=== PATIENT | female | born 1965 | race Caucasian/White ===

== ENCOUNTER 2016-09-29 12:38 | Observation (INO) | payer OTHER ==
[2016-09-29 13:16] LABS: Hematocrit 40 % (35-47); Hemoglobin 13.1 g/dl (12.0-16.0); Mean Corpuscular HGB Conc 33 g/dl (31-36); Mean Corpuscular Hemoglobin 28 pg (27-31); Mean Corpuscular Volume 86 fL (80-97); Mean Platelet Volume 7 um3 (7.4-10.4); Red Blood Count 4.62 10^6/ul (4.0-5.4); Red Cell Distribution Width 14 % (10.5-15); White Blood Count 13.1 10^3/ul (3.5-10.8)
[2016-09-29 13:18] LABS: Add Diff/Slide Review? Slide Review Added; Comments Flag Yes
[2016-09-29 13:31] LABS: Albumin 3.8 g/dL (3.2-5.2); BUN/Creatinine Ratio 15.9 (8-20); Calcium 9.7 mg/dL (8.6-10.3); EGFR African American 94.5 (>60); EGFR Non-African American 73.5 (>60); Globulin 3.1 g/dL (2-4); Potassium 3.8 mmol/L (3.5-5.0); Total Bilirubin 0.4 mg/dL (0.2-1.0); Total Protein 6.9 g/dL (6.4-8.9)
[2016-09-29] MEDS ORDERED: Albuterol/Ipratropium NEB.SOL* Albuterol 2.5 MG/Ipratropium 0.5 MG 3 ML INH ONE (13:56)
[2016-09-29] MEDS ORDERED: Iohexol 350* (CONTRAST) 500 ML MDV IV ONE (14:10)
[2016-09-29] MEDS ORDERED: cefTRIAXone VIAL(*) 1,000 MG in NS 0.9% 50 ML* 50 ML IVPB ONE ×2 (14:34→15:00)
[2016-09-29] MEDS ORDERED: cefTRIAXone VIAL(*) 1,000 MG VIAL ONE (14:39)
--- NOTE | 2016-09-29 14:45 | RAD ---
INDICATION: Chest pain shortness of breath COMPARISON: Similar chest x-ray dated September 18, 2016 TECHNIQUE: PA and lateral views of the chest were obtained. FINDINGS: The heart and mediastinum are normal in size and contour. The lungs are grossly clear. There is no evidence of large pleural effusion. Visualized bones are normal for the patient's age. There is no radiographic evidence of free air beneath the diaphragm IMPRESSION: No radiographic evidence of acute cardiopulmonary disease.
[2016-09-29] MEDS ORDERED: cefTRIAXone 1 GM IV - ED ONCE IVPB ONE ×2 (15:00)
--- NOTE | 2016-09-29 15:02 | RAD ---
INDICATION: Shortness of breath and tachycardia COMPARISON: None TECHNIQUE: Axial source images were acquired following the administration of 75 mL Omnipaque [address] angiographic technique. Coronal and sagittal reconstructed images were constructed and reviewed. FINDINGS: There there are no filling defects in the pulmonary arteries to indicate acute pulmonary embolic disease. There are no focal infiltrates or effusions. There are no pulmonary parenchymal masses. The heart is normal in size. There is no evidence of pericardial effusion. There is no evidence of aortic aneurysm or dissection. There is no mediastinal, hilar, or axillary lymphadenopathy. In the left breast there is a 1.8 mm nodule with a hyperattenuating focus (image 97 of 234). This appears to correspond to the appearance of the patient's screening mammogram dated August 26, 2015. Mild degenerative changes of the thoracic spine includes loss of intervertebral disc height and anterior marginal osteophyte formation. Limited views of the upper abdomen show no abnormalities. IMPRESSION: 1. No CT of evidence of pulmonary embolism. 2. Left breast nodule appears to correspond to the patient's August 26, 2015 mammogram and is of doubtful clinical concern. Continued annual mammographic screening is recommended for woman of this age.
--- NOTE | 2016-09-29 17:05 | HP ---
H&P (Free Text) History and Physical: PCP: Ajay Horta MD Date/Time of Evaluation: 09/29/2016 1710 CC: chest pain, SOB HPI: Mrs Bowden is a 51YO female who reports a dry cough onset just prior to Thanksgiving for which she has been following with her PCP and received a total of 3 courses of steroids and a 7day course of doxycycline. She feels the steroids helped some, but not remarkably. She denies periods of resolution. She has had increasing fatigue, SOB, & chest tightness since the Saturday before X- mas associated with post-nasal drip. She has had some light-headedness & palpitations. She had a single episode of N/V yesterday without blood or black contents. She denies F/C, diarrhea, and sweats. ED evaluation is notable for sinus tachycardia in the 120s, WBCs of 13k w/ 83% neutrophils, & lactic acid of 2.6. ECG is sinus tachycardia rate 119, biatrial enlargement, no ischemia. CXR & CTA chest are benign. She has not received an influenza vaccine this year. PMedHx migraines anxiety HTN allergic rhinitis Allergies Topiramate [From Topamax] Allergy (Severe, Verified 09/29/16 12:49) See Comment DEPRESSSION - DIDN'T GET OUT OF BED FOR 4 DAYS Adhesive Tape Adverse Reaction (Mild, Verified 09/29/16 12:49) Rash Ambulatory Orders Carisoprodol TAB* [Soma TAB*] 350 mg PO TID PRN 07/31/12 Hydrocodone/Acetam 5/500 (NF) [Lortab 5/500 (NF)] 1 - 2 tab PO Q6HR 07/31/12 Lisinopril TAB* [Prinivil TAB*] 10 mg PO DAILY 08/01/12 FLUoxetine CAP* [PROzac CAP*] 30 mg PO DAILY 03/19/13 Qnasl 1 nasal.spr INTRANASAL DAILY 05/11/13 Nortriptyline CAP* [Pamelor CAP*] 30 mg PO QPM 03/03/14 Advil 800 mg 04/10/14 Pseudoephedrine-Guaifenesin [Mucinex D] 1 tab PO DAILY 09/29/16 PSurgHx section L4-5 discectomy SocHx: former smoker w/ ~10PYHX, ~6 alcoholic drinks weekly, no recreational drugs; ; Master's degree in Human and Enviromental Analysis, employed by [employer]; [employer]; full code status FamHx: reviewed, non-contributory ROS: as above, otherwise reviewed and all were negative Constitutional: NAD, normally developed, obese white female vitals: Vital Signs Temp 36.8 C 09/29/16 12:40 Pulse 115 09/29/16 17:30 Resp 18 09/29/16 17:30 BP 109/79 09/29/16 17:30 Pulse Ox 98 09/29/16 17:30 Intake & Output 09/28/16 09/29/16 09/29/16 23:59 11:59 23:59 Intake Total 50 Balance 50 Weight 192 lb Intake: IV Fluids 50 HEENM: atraumatic; sclera/conjunctiva: non-icteric/clear; hearing: clinically intact; oropharynx: clear, mucosa tacky Neck: soft tissue: non-tender; thyroid: normal Pulmonary: clear to auscultation bilaterally, good aeration, no accessory muscle use CV: TR/RR, normal S1S2, no carotid bruit, no jugular venous distention, 2+ B DP/ PT, no edema Abdominal: soft, non-distended, non-tender, no rebound/guarding/rigidity, normoactive bowel sounds, no hepatosplenomegaly or masses, no costovertebral angle tenderness Musculoskeletal: general: grossly intact; gait: stable Integumental: normal appearance and texture Psychiatric orientation: AA&O to PPTS affect: calm mood: cooperative eye contact: good content: reliable responses: timely insight: good Testing: Lab Results 09/29/16 09/29/16 09/29/16 Range/Units 13:06 13:06 13:06 WBC 13.1 H (3.5-10.8) 10^3/ul RBC 4.62 (4.0-5.4) 10^6/ul Hgb 13.1 (12.0-16.0) g/dl Hct 40 (35-47) % MCV 86 (80-97) fL MCH 28 (27-31) pg MCHC 33 (31-36) g/dl RDW 14 (10.5-15) % Plt Count 326 (150-450) 10^3/ul MPV 7 L (7.4-10.4) um3 Neut % (Auto) 83.6 H (38-83) % Lymph % (Auto) 10.2 L (25-47) % [place] % (Auto) 4.8 (1-9) % Eos % (Auto) 1.0 (0-6) % Baso % (Auto) 0.4 (0-2) % Absolute Neuts (auto) 10.9 H (1.5-7.7) 10^3/ul Absolute Lymphs (auto) 1.3 (1.0-4.8) 10^3/ul Absolute Monos (auto) 0.6 (0-0.8) 10^3/ul Absolute Eos (auto) 0.1 (0-0.6) 10^3/ul Absolute Basos (auto) 0.1 (0-0.2) 10^3/ul Absolute Nucleated RBC 0.01 10^3/ul Nucleated RBC % 0.1 Sodium 134 (133-145) mmol/L Potassium 3.8 (3.5-5.0) mmol/L Chloride 102 (101-111) mmol/L Carbon Dioxide 24 (22-32) mmol/L Anion Gap 8 (2-11) mmol/L BUN 13 (6-24) mg/dL Creatinine 0.82 (0.51-0.95) mg/dL Est GFR ( Amer) 94.5 (>60) Est GFR (Non-Af Amer) 73.5 (>60) BUN/Creatinine Ratio 15.9 (8-20) Glucose 135 H (70-100) mg/dL Lactic Acid 2.6 H* (0.5-2.0) mmol/L Calcium 9.7 (8.6-10.3) mg/dL Total Bilirubin 0.40 (0.2-1.0) mg/dL AST 20 (13-39) U/L ALT 37 (7-52) U/L Alkaline Phosphatase 68 (34-104) U/L Troponin I 0.00 (<0.04) ng/mL B-Natriuretic Peptide ( - 100) pg/mL Total Protein 6.9 (6.4-8.9) g/dL Albumin 3.8 (3.2-5.2) g/dL Globulin 3.1 (2-4) g/dL Albumin/Globulin Ratio 1.2 (1-3) Procalcitonin (<0.6) ng/mL 09/29/16 09/29/16 Range/Units 13:06 13:06 WBC (3.5-10.8) 10^3/ul RBC (4.0-5.4) 10^6/ul Hgb (12.0-16.0) g/dl Hct (35-47) % MCV (80-97) fL MCH (27-31) pg MCHC (31-36) g/dl RDW (10.5-15) % Plt Count (150-450) 10^3/ul MPV (7.4-10.4) um3 Neut % (Auto) (38-83) % Lymph % (Auto) (25-47) % Noble % (Auto) (1-9) % Eos % (Auto) (0-6) % Baso % (Auto) (0-2) % Absolute Neuts (auto) (1.5-7.7) 10^3/ul Absolute Lymphs (auto) (1.0-4.8) 10^3/ul Absolute Monos (auto) (0-0.8) 10^3/ul Absolute Eos (auto) (0-0.6) 10^3/ul Absolute Basos (auto) (0-0.2) 10^3/ul Absolute Nucleated RBC 10^3/ul Nucleated RBC % Sodium (133-145) mmol/L Potassium (3.5-5.0) mmol/L Chloride (101-111) mmol/L Carbon Dioxide (22-32) mmol/L Anion Gap (2-11) mmol/L BUN (6-24) mg/dL Creatinine (0.51-0.95) mg/dL Est GFR ( Amer) (>60) Est GFR (Non-Af Amer) (>60) BUN/Creatinine Ratio (8-20) Glucose (70-100) mg/dL Lactic Acid (0.5-2.0) mmol/L Calcium (8.6-10.3) mg/dL Total Bilirubin (0.2-1.0) mg/dL AST (13-39) U/L ALT (7-52) U/L Alkaline Phosphatase (34-104) U/L Troponin I (<0.04) ng/mL B-Natriuretic Peptide 12 ( - 100) pg/mL Total Protein (6.4-8.9) g/dL Albumin (3.2-5.2) g/dL Globulin (2-4) g/dL Albumin/Globulin Ratio (1-3) Procalcitonin < 0.1 (<0.6) ng/mL ECG, personally reviewed: sinus tachycardia rate 119, biatrial enlargement, no ischemia CXR, personally reviewed: IMPRESSION: No radiographic evidence of acute cardiopulmonary disease. CTA chest, personally reviewed: IMPRESSION: 1. No CT of evidence of pulmonary embolism. 2. Left breast nodule appears to correspond to the patient's August 26, 2015 mammogram and is of doubtful clinical concern. Continued annual mammographic screening is recommended for woman of this age. Impression: 51F presenting with a chronic dry cough failed outpatient treatment , mild leukocytosis, and ECG revealing unexplained biatrial enlargement DIAGNOSIS & PLAN Primary chronic cough likely 2nd ACEI : D/C lisinopril : check rapid influenza : trend leukocytosis : supportive care sinus tachycardia : suspect 2nd dehydration & anxiety : IVFs, monitor abnormal ECG w/ biatrial enlargement : check ECHO for structural abnormalities, specifically of the mitral valve Secondary migraines : continue PRN carisoprodol & hydrocodoneAPAP PRN anxiety : continue fluoxetine HTN : continue lisinopril allergic rhinitis : continue Q nasal Admission Rational: observation for chronic cough failed outpatient treatment DVTp: ANNE MARIE Code Status: full
[2016-09-29] MEDS ORDERED: Acetaminophen TAB* 325 MG PO PRN (17:49)
[2016-09-29] MEDS ORDERED: Albuterol 2.5 MG/3 ML NEB.SOL* (0.083%) INH PRN (17:49)
[2016-09-29] MEDS ORDERED: Ondansetron INJ* 2 MG/ML VIAL IV PRN (17:50)
[2016-09-29] MEDS ORDERED: Melatonin (NF) 3 MG TAB PO PRN (17:50)
[2016-09-29] MEDS ORDERED: NS 0.9% 1000 ML* 1,000 ML IV SCH (18:00)
[2016-09-29] MEDS ORDERED: Nortriptyline CAP* 10 MG PO SCH (18:00)
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
[2016-09-29] MEDS: guaiFENesin ER TAB 600 MG PO SCH (21:07)
[2016-09-29] MEDS: NS 0.9% 1000 ML* 1,000 ML IV SCH ×2 (22:28→23:47)
[2016-09-30] MEDS ORDERED: Omeprazole CAP* 20 MG PO SCH (06:00)
[2016-09-30 08:33] LABS: Hematocrit 36 % (35-47); Hemoglobin 11.7 g/dl (12.0-16.0); Mean Corpuscular HGB Conc 33 g/dl (31-36); Mean Corpuscular Hemoglobin 29 pg (27-31); Mean Corpuscular Volume 87 fL (80-97); Mean Platelet Volume 7 um3 (7.4-10.4); Red Blood Count 4.08 10^6/ul (4.0-5.4); Red Cell Distribution Width 14 % (10.5-15); White Blood Count 9.8 10^3/ul (3.5-10.8)
[2016-09-30] MEDS ORDERED: Lisinopril TAB* 10 MG PO SCH (09:00)
[2016-09-30] MEDS ORDERED: FLUoxetine CAP* 10 MG PO SCH (09:00)
[2016-09-30] MEDS ORDERED: Influenza VAC *QUAD* 2016-17* 0.5 ML SYRINGE IM ONE (09:00)
[2016-09-30] MEDS: guaiFENesin ER TAB 600 MG PO SCH (09:10)
[2016-09-30 11:41] VITALS: BP 134/85
--- NOTE | 2016-09-30 11:45 | DCNOTE ---
Subjective Date of Service: 09/30/16 Interval History: No change in cough. Objective Active Medications: Acetaminophen (Tylenol Tab*) 650 mg PO Q6H PRN PRN Reason: FEVER/PAIN Last Admin: 09/29/16 21:07 Dose: 650 mg Albuterol (Ventolin 2.5 Mg/3 Ml Neb.Fanta*) 2.5 mg INH Q2H PRN PRN Reason: SOB/WHEEZING Fluoxetine HCl (Prozac Cap*) 30 mg PO DAILY [facility] Last Admin: 09/30/16 09:11 Dose: 30 mg Guaifenesin (Mucinex*) 1,200 mg PO BID [facility] Last Admin: 09/30/16 09:10 Dose: 1,200 mg Sodium Chloride (Ns 0.9% 1000 Ml*) 1,000 mls @ 0 mls/hr IV WIDE OPEN BELEM PRN Reason: Wide Open Stop: 09/30/16 18:01 Last Admin: 09/29/16 23:47 Dose: 1,000 mls/hr Nortriptyline HCl (Pamelor Cap*) 30 mg PO QPM [facility] Last Admin: 09/29/16 21:48 Dose: 30 mg Ondansetron HCl (Zofran Inj*) 4 mg IV Q6H PRN PRN Reason: NAUSEA Vital Signs 09/29/16 09/29/16 09/29/16 17:30 18:00 18:30 Temperature Pulse Rate 115 115 110 Respiratory 18 25 21 Rate Blood Pressure 109/79 115/81 (mmHg) O2 Sat by Pulse 98 97 96 Oximetry 09/29/16 09/29/16 09/29/16 19:00 19:30 20:00 Temperature 98.8 F Pulse Rate 114 114 111 Respiratory 18 13 17 Rate Blood Pressure 120/87 125/80 126/83 (mmHg) O2 Sat by Pulse 98 97 100 Oximetry 09/29/16 09/29/16 09/30/16 20:02 20:22 04:06 Temperature 98.8 F 97.8 F Pulse Rate 111 114 Respiratory 17 17 16 Rate Blood Pressure 126/83 125/77 (mmHg) O2 Sat by Pulse 100 98 Oximetry 09/30/16 09/30/16 09/30/16 07:14 08:00 10:28 Temperature 98.0 F Pulse Rate 105 115 Respiratory 16 16 18 Rate Blood Pressure 118/75 (mmHg) O2 Sat by Pulse 99 99 Oximetry Oxygen Devices in Use Now: None Appearance: Alert, partly up in bed. In fair spirits. Looks comfortable other than fairly frequent harsh cough. Ears/Nose/Mouth/Throat: Clear Oropharnyx, Mucous Membranes Moist Neck: NL Appearance and Movements; NL JVP, No Thyroid Enlargement, Masses Respiratory: Symmetrical Chest Expansion and Respiratory Effort, Clear to Auscultation Extremities: No Edema, No Clubbing, Cyanosis, - Skin: No Rash or Ulcers, No Nodules or Sclerosis, - Neurological: Alert and Oriented x 3, NL Sensation Result Diagrams: 09/30/16 08:19 09/29/16 13:06 Additional Lab and Data: Lab Results 09/29/16 09/29/16 09/29/16 Range/Units 13:06 13:06 13:06 WBC 13.1 H (3.5-10.8) 10^3/ul RBC 4.62 (4.0-5.4) 10^6/ul Hgb 13.1 (12.0-16.0) g/dl Hct 40 (35-47) % MCV 86 (80-97) fL MCH 28 (27-31) pg MCHC 33 (31-36) g/dl RDW 14 (10.5-15) % Plt Count 326 (150-450) 10^3/ul MPV 7 L (7.4-10.4) um3 Neut % (Auto) 83.6 H (38-83) % Lymph % (Auto) 10.2 L (25-47) % [place] % (Auto) 4.8 (1-9) % Eos % (Auto) 1.0 (0-6) % Baso % (Auto) 0.4 (0-2) % Absolute Neuts (auto) 10.9 H (1.5-7.7) 10^3/ul Absolute Lymphs (auto) 1.3 (1.0-4.8) 10^3/ul Absolute Monos (auto) 0.6 (0-0.8) 10^3/ul Absolute Eos (auto) 0.1 (0-0.6) 10^3/ul Absolute Basos (auto) 0.1 (0-0.2) 10^3/ul Absolute Nucleated RBC 0.01 10^3/ul Nucleated RBC % 0.1 Sodium 134 (133-145) mmol/L Potassium 3.8 (3.5-5.0) mmol/L Chloride 102 (101-111) mmol/L Carbon Dioxide 24 (22-32) mmol/L Anion Gap 8 (2-11) mmol/L BUN 13 (6-24) mg/dL Creatinine 0.82 (0.51-0.95) mg/dL Est GFR ( Amer) 94.5 (>60) Est GFR (Non-Af Amer) 73.5 (>60) BUN/Creatinine Ratio 15.9 (8-20) Glucose 135 H (70-100) mg/dL Lactic Acid 2.6 H* (0.5-2.0) mmol/L Calcium 9.7 (8.6-10.3) mg/dL Total Bilirubin 0.40 (0.2-1.0) mg/dL AST 20 (13-39) U/L ALT 37 (7-52) U/L Alkaline Phosphatase 68 (34-104) U/L Troponin I 0.00 (<0.04) ng/mL B-Natriuretic Peptide ( - 100) pg/mL Total Protein 6.9 (6.4-8.9) g/dL Albumin 3.8 (3.2-5.2) g/dL Globulin 3.1 (2-4) g/dL Albumin/Globulin Ratio 1.2 (1-3) /31/16 Range/Units 13:06 WBC (3.5-10.8) 10^3/ul RBC (4.0-5.4) 10^6/ul Hgb (12.0-16.0) g/dl Hct (35-47) % MCV (80-97) fL MCH (27-31) pg MCHC (31-36) g/dl RDW (10.5-15) % Plt Count (150-450) 10^3/ul MPV (7.4-10.4) um3 Neut % (Auto) (38-83) % Lymph % (Auto) (25-47) % [place] % (Auto) (1-9) % Eos % (Auto) (0-6) % Baso % (Auto) (0-2) % Absolute Neuts (auto) (1.5-7.7) 10^3/ul Absolute Lymphs (auto) (1.0-4.8) 10^3/ul Absolute Monos (auto) (0-0.8) 10^3/ul Absolute Eos (auto) (0-0.6) 10^3/ul Absolute Basos (auto) (0-0.2) 10^3/ul Absolute Nucleated RBC 10^3/ul Nucleated RBC % Sodium (133-145) mmol/L Potassium (3.5-5.0) mmol/L Chloride (101-111) mmol/L Carbon Dioxide (22-32) mmol/L Anion Gap (2-11) mmol/L BUN (6-24) mg/dL Creatinine (0.51-0.95) mg/dL Est GFR ( Amer) (>60) Est GFR (Non-Af Amer) (>60) BUN/Creatinine Ratio (8-20) Glucose (70-100) mg/dL Lactic Acid (0.5-2.0) mmol/L Calcium (8.6-10.3) mg/dL Total Bilirubin (0.2-1.0) mg/dL AST (13-39) U/L ALT (7-52) U/L Alkaline Phosphatase (34-104) U/L Troponin I (<0.04) ng/mL B-Natriuretic Peptide 12 ( - 100) pg/mL Total Protein (6.4-8.9) g/dL Albumin (3.2-5.2) g/dL Globulin (2-4) g/dL Albumin/Globulin Ratio (1-3) Microbiology and Other Data: Microbiology 09/29/16 18:20 Influenza Types A,B Antigen (IDALIA) - Final Nasal Specimen received for Influenza A/B Molecular testing Assess/Plan/Problems-Billing Assessment: - Patient Problems (1) Cough Status: Acute Code(s): R05 - COUGH SNOMED Code(s): 11323831 Comment: Possibly due to ACEI. Echo shows mild concnetric LVH, LVEF 50-55% .. Last dose lisinopril 09/29/16. Fup Dr. Horta. If no improvement in the next few weeks would recommend pulmonary consultation. (2) Migraines Status: Acute Code(s): G43.909 - MIGRAINE, UNSP, NOT INTRACTABLE, WITHOUT STATUS MIGRAINOSUS SNOMED Code(s): 92452086 Comment: Continue her home meds. (3) HTN (hypertension) Status: Acute Code(s): I10 - ESSENTIAL (PRIMARY) HYPERTENSION SNOMED Code(s) : 39010994 Comment: Lisinopril d/c'd. Adrianop Dr. Horta.
[2016-09-30 12:03] LABS: TSH (Thyroid Stimulating Horm) 0.73 mcIU/mL (0.34-5.60)
--- NOTE | 2016-09-30 14:35 | ECHO ---
Patient: HATTIE DAVIDSON [facility] Rec#: [id number] : 1965 Date: 09/30/2016 Age: 51y Height: 157.5 cm / 62.0 in Weight: 87.1 kg / 192.0 lbs Sex: F BSA: 1.9 Room#: 401 Admit Date#: 09/29/2016 Type: Inpatient Referring: Srikanth Johnson MD Reading: Teresa Floyd MD Nnps: Evangelina Haynes RN RDCS CC: Reji Horta MD Transthoracic Echocardiogram Indication: Abnormal EKG BP: 134/85 HR: 104 Rhythm: Tachycardia Findings History: Migraines, HTN, anxiety, obesity, allergic rhinitis, recent persistent cough, current EKG suggesting biatrial enlargement Technical Comments: The study is technically limited due to poor apical windows. The study is technically limited due to patient body habitus. The study is technically limited due to the patient's smoking history. Left Ventricle: The left ventricular chamber size is normal. Mild concentric left ventricular hypertrophy is observed. Global left ventricular wall motion and contractility are within normal limits. Left ventricular systolic function is at the lower limits of normal. The estimated ejection fraction is 50-55%. There is an E to A reversal in the mitral valve flow pattern suggestive of diastolic dysfunction. Left Atrium: The left atrial chamber size is normal. Right Ventricle: The right ventricular chamber size and systolic function are within normal limits. Right Atrium: The right atrium is mildly dilated. Aortic Valve: The aortic valve structure is not well visualized. The aortic valve leaflets are mildly thickened. There is no evidence of aortic regurgitation. There is no evidence of aortic stenosis. Mitral Valve: The mitral valve leaflets are mildly thickened. There is a trace of mitral regurgitation. There is no evidence of mitral stenosis. Tricuspid Valve: The tricuspid valve leaflets are normal. There is trace tricuspid regurgitation. Unable to estimate the right ventricular systolic pressure. Pulmonic Valve: The pulmonic valve structure is not well visualized. Pericardium: There is no significant pericardial effusion. A pericardial fat pad is visualized. Aorta: There is no dilatation of the ascending aorta. There is no dilatation of the aortic arch. The aortic root is normal in size. Pulmonary Artery: The main pulmonary artery appears normal. Venous: The inferior vena cava appears normal in size. There is a greater than 50% respiratory change in the inferior vena cava dimension. Conclusions Mild concentric left ventricular hypertrophy is observed. Left ventricular systolic function is at the lower limits of normal. The estimated ejection fraction is 50-55%. Abnormal diastolic filling pattern. The right ventricular chamber size and systolic function are within normal limits. The aortic valve leaflets are mildly thickened. There is a trace of mitral regurgitation. There is trace tricuspid regurgitation. No prior echo available to compare. Measurements Name Value Normal Range RVDdMajor (2D) 3.2 cm (2.2 - 4.4) RAd ISD 4CH 5.2 cm (3.4 - 4.9) RA (A4C)W 4 cm (2.9 - 4.6) IVSd (2D) 1.1 cm (0.6 - 1) LVPWd (2D) 1.1 cm (0.6 - 1) LVIDd (2D) 3.6 cm (3.6 - 5.4) Aortic Annulus 2.1 cm (1.4 - 2.6) Ao root diameter (2D) 2.8 cm (2.1 - 3.5) Ascending Ao 2.9 cm (2.1 - 3.4) Aortic arch 2.2 cm (1.8 - 3.4) LA dimension (AP) 2D 2.9 cm (2.3 - 3.8) LAd ISD 4CH 5.1 cm (2.9 - 5.3) LA ISD 4CH W 3.8 cm (2.5 - 4.5) Name Value Normal Range LA ESV SP 4CH (A/L) 33 ml - LA ESV SP 2CH (A/L) 35 ml - LA ESV BP (A/L) 35 ml - LA ESV BP (A/L) index 18.6 ml/m2 - LA ESV SP 4CH (MOD) 32 ml - LA ESV SP 2CH (MOD) 34 ml - Name Value Normal Range MV E-wave Vmax 0.86 m/sec - MV deceleration time 148 msec - MV A-wave Vmax 1.1 m/sec - MV E:A ratio 0.8 ratio - LV septal e' Vmax 0.09 m/sec - LV lateral e' Vmax 0.1 m/sec - LV E:e' septal ratio 9.6 ratio - LV E:e' lateral ratio 8.6 ratio - Name Value Normal Range AV Vmax 1.4 m/sec - LVOT Vmax 1.1 m/sec - HAYEDN Vmax 0.44 m/sec - Name Value Normal Range IVC diameter 1.6 cm - Name Value Normal Range PV Vmax 0.9 m/sec -
--- NOTE | 2016-10-01 08:20 | DS ---
AMENDED REPORT NOW INCLUDES DATES OF SERVICE - ESIGNED BEFORE ADJUSTMENT DISCHARGE SUMMARY: DATE OF ADMISSION: 09/29/16 DATE OF DISCHARGE: 09/30/16 HISTORY OF PRESENT ILLNESS: This 50-year-old woman was admitted with complaint of dry cough. This has been present for about 6 weeks. She has had 3 different courses of steroids as an outpatient as well as a 7-day course of doxycycline. There was very little help from any of these treatments. She also complained of fatigue, shortness of breath, chest tightness, and postnasal drip. The rest of the history and physical are detailed in the dictated admission note. There was a suspicion that her cough was due to her lisinopril which was held after admission. Her white blood count fell from 13.1 to 9.8 while she was here. Lactic acid was 2.6 on admission and 1.2 later the first hospital day. She was afebrile throughout her hospital stay. She was advised to stop her lisinopril. DISCHARGE DIAGNOSES: 1. Cough, possibly due to ARETHA inhibitor. 2. Migraine headaches. 3. Hypertension. DISCHARGE MEDICATIONS: 1. Hydrocodone/acetaminophen 5/500 one to two tabs every 6 hours p.r.n. 2. Carisoprodol 350 mg t.i.d. p.r.n. 3. Fluoxetine 30 mg daily. 4. Qnasl nasal spray daily. 5. Nortriptyline 30 mg at bedtime. 6. Advil 800 mg every 8 hours. 7. Mucinex D 120-1200 one daily. CC: Dr. Horta * [id number]/[facility] #: [id number] [facility]ITAL[facility]
== END 2016-09-30 15:24 | disposition home or self-care (01) ==
LOC: ED 12:38 → MED 17:10
PROVIDERS: ADMIT Hospitalist; ATTEND Internal Medicine
DX: R05 Cough (principal); R00.0 Tachycardia, unspecified; R94.31 Abnormal electrocardiogram [ECG] [EKG]; R07.9 Chest pain, unspecified; R06.00 Dyspnea, unspecified; I51.7 Cardiomegaly; J30.9 Allergic rhinitis, unspecified; G43.909 Migraine, unspecified, not intractable, without status migrainosus; I10 Essential (primary) hypertension; Z88.8 Allergy status to other drugs, medicaments and biological substances; Z23 Encounter for immunization; F41.9 Anxiety disorder, unspecified; Z87.891 Personal history of nicotine dependence
CPT/HCPCS: 36415; 71020; 71275; 80053; 83605; 83880; 84145; 84443; 84484; 85025; 85027; 87040; 87502; 90686; 93005; 93306; 94640; 94760; 96361; 96365; 99284; A9270-GY; G0378; J0696; Q9967

== ENCOUNTER 2017-11-06 12:36 | Emergency (ER) | payer OTHER ==
--- OUTSIDE RECORDS SUMMARY | 2017-11-06 13:13 | XMS REPORT ---
:1965 External Reference #:[id number] Author Organization [facility] Address [address] [address] Phone [phone] Care Team Providers Name Role Phone Reji Horta MD Primary Care Physician Unavailable Payers Type Date Identification Numbers Payment Provider Subscriber Commercial Policy Number: [id number] [facility] Bertha Bowden Group Number: [id number] [id number] PayID: [id number] [place] [address] Problems Date Description Provider Status Onset: 10/06/2014 Chronic Migraine W/Out Aura, Kaila Rios M.D. Active W/Intractable W/O Migrainosus Onset: 10/01/2017 Arthropathy of pelvis Rosalia Amaral MD Active Onset: 07/20/2015 Chronic intractable migraine without Palmira Pichardo NP Active aura Social History Type Date Description Comments ETOH Use Occasionally consumes alcohol glass of wine with dinner, daily, maybe 2 on weekends Smoking Patient is a former smoker quit in 2000, 1 ppd at most Allergies, Adverse Reactions, Alerts Date Description Reaction Status Severity Comments 07/29/2013 Adhesive Urticaria active 05/13/2014 Topiramate active Depression 09/17/2017 Tape active 07/29/2013 NKDA inactive Medications Medication Date Status Form Strength Qnty SIG Indications Ordering Provider Sumatriptan 02/16 Active Tablets 100mg 12tab 1 tab by G43.719 Kaila /2015 s mouth as Cowdery, needed for M.D. migraine, may repeat after 2 hours; max 2 days a week, maximum 2 tablets in 24 hours. Nortriptyline HCL 02/16 Active Capsules 10mg 90cap take 3 s capsules by Cowdery, mouth at M.D. bedtime Soma Active Tablets 350mg 90tab tid prn Unknown / s Hydrocodone/Acetam Active Tablets 5-325mg 60tab 1-2 po qid Unknown inophen / s prn pain Advil Active Tablets 200mg 4 PO bid prn Prozac Active Capsules 20mg 30cap 1 + 1/2 Unknown / s caps po qd Qnasl Active Aerosol 80mcg/Act 8.700 2 gm inhalations in each nostril once daily Hydrochlorothiazid Active Tablets 50mg 1 by mouth Unknown every day Whole Food Active Tablets as directed Unknown Suppl / Topiramate 05/03 Hx Tablets 25mg 120ta take 1 by 346.71 bs mouth each Cowder, - night x 10 M.D. 05/13 days, january increase by 1 tablet every 10 days to maximum of 4 tablets by mouth at bedtime. Nortriptyline HCL 11/10 Hx Capsules 50mg 30cap take 1 by s mouth every , - night at M.D. 02/16 bedtime Nortriptyline HCL 07/29 Hx Capsules 10mg 150ca 1 po qhs x ps 1week, january, - increase by M.D. 11/10 1 tablet week to maximum 5 po qhs. Lisinopril Hx Tablets 10mg 30tab 1 po qd s - 11/27 Nuvaring Hx Ring 0.12-0.01 3unit insert 1 5mg/24HR s ring - vaginally 09/30 every days leave in place for 3 weeks, remove, and replace with a new ring after 7 day break for b Paty Hx Solution 0.2% 2.500 instill one ml drop into - each eye 01/28 Metformin HCL Hx Tablets 500mg 2 po qd - 01/28 Vitamin D Hx Tablets 2000Unit 1 by mouth Unknown /0000 every day - 03/14 Medications Administered in Office Medication Date Status Form Strength Qnty SIG Indications Ordering Provider Injection 10/04 Administered Injection Kaila Onabotulinumtoxin /2017 Cowdery, A, 1 Unit M.D. Injection 06/19 Administered Injection Kaila Onabotulinumtoxin /2016 Cowdery, A, 1 Unit M.D. No Injection 04/09 Administered Injection Brandon MD Dayan Depomedrol 40MG 04/09 Administered Injection MD Dayan Injection 03/15 Administered Injection Kaila Onabotulinumtoxin /2016 Cowdery, A, 1 Unit M.D. Injection 11/28 Administered Injection Kaila Onabotulinumtoxin /2016 Cowdery, A, 1 Unit M.D. Injection 11/28 Administered Injection Kaila Onabotulinumtoxin /2016 Cowdery, A, 1 Unit M.D. Injection 05/18 Administered Injection Kaila Onabotulinumtoxin /2015 Cowdery, A, 1 Unit M.D. Injection 02/16 Administered Injection Kaila Onabotulinumtoxin /2015 Cowdery, A, 1 Unit M.D. Injection 11/02 Administered Injection Kaila Onabotulinumtoxin /2015 Cowdery, A, 1 Unit M.D. Injection 07/20 Administered Injection Palmira Onabotulinumtoxin /2014 Gnmartita, BLOCKER HEATED METAL FORMS A, 1 Unit Injection 04/18 Administered Injection Palmira Onabotulinumtoxin /2014 Kylee BLOCKER HEATED METAL FORMS A, 1 Unit Injection 01/12 Administered Injection Palmira Onabotulinumtoxin /2014 Kylee BLOCKER HEATED METAL FORMS A, 1 Unit Injection 10/06 Administered Injection Kaila Onabotulinumtoxin /2014 Cowdery, A, 1 Unit M.D. Injection 06/28 Administered Injection Kaila Onabotulinumtoxin /2013 Cowdery, A, 1 Unit M.D. Depomedrol 80MG 03/09 Administered Injection Christopher Jones.P.ALinda-Alvarado Depomedrol 40MG 03/09 Administered Injection Ivet JonesPLindaALinda-Alvarado Depomedrol 20MG 03/09 Administered Injection Bg Jones Depomedrol 80MG 02/12 Administered Injection Robin Edmonds Depomedrol 40MG 06/18 Administered Injection Toney Robin Edmonds Depomedrol 40MG 08/23 Administered Injection QUYNH Whitt Vital Signs Date Vital Result Comment 10/18/2017 Height 63 inches 5'3" Weight 186.00 lb BP Systolic 140 mmHg BP Diastolic 82 mmHg Respiratory Rate 18 /min Pain Level 3 BMI (Body Mass Index) 32.9 kg/m2 10/04/2017 Height 63 inches 5'3" Weight 186.00 lb Heart Rate 108 /min BP Systolic Sitting 178 mmHg BP Diastolic Sitting 104 mmHg Respiratory Rate 16 /min BMI (Body Mass Index) 32.9 kg/m2 10/01/2017 Height 63 inches 5'3" Weight 187.00 lb per pt Heart Rate 98 /min reg BP Systolic Sitting 144 mmHg Lue, lg cuff BP Diastolic Sitting 94 mmHg Lue, lg cuff Respiratory Rate 16 /min Body Temperature 97.6 F tympanic Pain Level 4 right hip BMI (Body Mass Index) 33.1 kg/m2 09/17/2017 Height 63 inches 5'3" Weight 179.00 lb BP Systolic 148 mmHg BP Diastolic 82 mmHg Respiratory Rate 20 /min Pain Level 5 BMI (Body Mass Index) 31.7 kg/m2 06/19/2017 Height 63 inches 5'3" Weight 179.50 lb Heart Rate 64 /min BP Systolic Sitting 152 mmHg BP Diastolic Sitting 90 mmHg Respiratory Rate 16 /min BMI (Body Mass Index) 31.8 kg/m2 04/09/2017 Height 63 inches 5'3" Weight 174.00 lb BP Systolic 135 mmHg BP Diastolic 85 mmHg Respiratory Rate 16 /min Pain Level 6 BMI (Body Mass Index) 30.8 kg/m2 03/15/2017 Height 63 inches 5'3" Weight 176.00 lb Heart Rate 72 /min BP Systolic Sitting 144 mmHg BP Diastolic Sitting 90 mmHg Respiratory Rate 14 /min BMI (Body Mass Index) 31.2 kg/m2 11/28/2016 Height 63 inches 5'3" Weight 189.00 lb Heart Rate 88 /min BP Systolic Sitting 148 mmHg BP Diastolic Sitting 92 mmHg Respiratory Rate 14 /min BMI (Body Mass Index) 33.5 kg/m2 05/18/2016 Height 63 inches 5'3" Weight 189.00 lb Heart Rate 76 /min BP Systolic Sitting 124 mmHg BP Diastolic Sitting 92 mmHg Respiratory Rate 14 /min BMI (Body Mass Index) 33.5 kg/m2 02/17/2016 Height 63 inches 5'3" Weight 187.00 lb Heart Rate 116 /min BP Systolic Sitting 132 mmHg BP Diastolic Sitting 86 mmHg Respiratory Rate 16 /min BMI (Body Mass Index) 33.1 kg/m2 11/02/2015 Height 63 inches 5'3" Weight 195.00 lb Heart Rate 104 /min BP Systolic Sitting 134 mmHg BP Diastolic Sitting 82 mmHg Respiratory Rate 14 /min BMI (Body Mass Index) 34.5 kg/m2 09/05/2015 Height 63 inches 5'3" Weight 197.00 lb Heart Rate 80 /min BP Systolic Sitting 120 mmHg BP Diastolic Sitting 78 mmHg Respiratory Rate 17 /min BMI (Body Mass Index) 34.9 kg/m2 07/20/2015 Height 63 inches 5'3" Weight 190.00 lb Heart Rate 96 /min BP Systolic Sitting 138 mmHg BP Diastolic Sitting 84 mmHg Respiratory Rate 16 /min BMI (Body Mass Index) 33.7 kg/m2 04/18/2015 Height 63 inches 5'3" Heart Rate 84 /min BP Systolic Sitting 122 mmHg BP Diastolic Sitting 72 mmHg Respiratory Rate 16 /min 03/02/2015 Height 63 inches 5'3" Weight 192.00 lb Heart Rate 80 /min BP Systolic Sitting 116 mmHg BP Diastolic Sitting 72 mmHg Respiratory Rate 16 /min BMI (Body Mass Index) 34.0 kg/m2 01/12/2015 Height 63 inches 5'3" Heart Rate 80 /min BP Systolic Sitting 108 mmHg BP Diastolic Sitting 68 mmHg Respiratory Rate 16 /min 10/06/2014 Height 63 inches 5'3" Weight 196.00 lb Heart Rate 92 /min BP Systolic Sitting 138 mmHg BP Diastolic Sitting 90 mmHg Respiratory Rate 16 /min BMI (Body Mass Index) 34.7 kg/m2 08/09/2014 Height 63 inches 5'3" Weight 197.00 lb BP Systolic Sitting 120 mmHg BP Diastolic Sitting 78 mmHg Respiratory Rate 16 /min BMI (Body Mass Index) 34.9 kg/m2 06/28/2014 Height 63 inches 5'3" Weight 197.00 lb Heart Rate 80 /min BP Systolic Sitting 110 mmHg BP Diastolic Sitting 70 mmHg Respiratory Rate 16 /min BMI (Body Mass Index) 34.9 kg/m2 05/03/2014 Height 63 inches 5'3" Weight 202.00 lb Heart Rate 80 /min BP Systolic Sitting 120 mmHg BP Diastolic Sitting 80 mmHg Respiratory Rate 16 /min BMI (Body Mass Index) 35.8 kg/m2 03/09/2014 Height 63 inches 5'3" Heart Rate 105 /min BP Systolic 139 mmHg BP Diastolic 92 mmHg 01/25/2014 Height 63 inches 5'3" Weight 210.00 lb Heart Rate 70 /min BP Systolic Sitting 120 mmHg BP Diastolic Sitting 70 mmHg Respiratory Rate 16 /min BMI (Body Mass Index) 37.2 kg/m2 12/07/2013 Heart Rate 67 /min BP Systolic Sitting 140 mmHg BP Diastolic Sitting 70 mmHg Respiratory Rate 16 /min 07/29/2013 Heart Rate 76 /min BP Systolic Sitting 140 mmHg BP Diastolic Sitting 80 mmHg Respiratory Rate 18 /min Results Test Date Test Result H/L Range Note Laboratory test finding 11/03/2013 Nortriptyline 122 ng/mL 1 1 -- REFERENCE VALUE -- 70-170 (Therapeutic concentration), >=300 (Toxic concentration) Test Performed by: [place] [id number] Production Finisher: Leonardo Patel III, M.D. Procedures Date CPT Code Description Status 10/04/2017 49390 Chemodenervation Of Muscles Innervated By Facial Completed Nerves, Bilat 06/19/2017 86172 Chemodenervation Of Muscles Innervated By Facial Completed Nerves, Bilat 04/09/2017 96110 Inject/Drain Joint/Bursa Intermediate Completed 03/15/2017 49117 Chemodenervation Of Muscles Innervated By Facial Completed Nerves, Bilat 11/28/2016 74662 Chemodenervation Of Muscles Innervated By Facial Completed Nerves, Bilat 09/30/2016 90184 ECHO Transthorasic Realtime 2D W Doppler & Color Completed Flow Hosp 05/18/2016 03046 Chemodenervation Of Muscles Innervated By Facial Completed Nerves, Bilat 02/17/2016 68371 Chemodenervation Of Muscles Innervated By Facial Completed Nerves, Bilat 11/02/2015 12498 Chemodenervation Of Muscles Innervated By Facial Completed Nerves, Bilat 07/20/2015 26285 Chemodenervation Of Muscles Innervated By Facial Completed Nerves, Bilat 04/18/2015 52897 Chemodenervation Of Muscles Innervated By Facial Completed Nerves, Bilat 01/12/2015 45868 Chemodenervation Of Muscles Innervated By Facial Completed Nerves, Bilat 10/06/2014 37395 Chemodenervation Of Neck Muscles Excluding Larynx, Completed Unilateral 06/28/2014 38048 Chemodenervation Of Muscles Innervated By Facial Completed Nerves, Bilat 03/09/2014 25166 Rad Shoulder Comp, Min. 2 Views Completed 03/09/2014 Inject/Drain Joint/Bursa Major Completed 03/09/2014 Inject/Drain Joint/Bursa Intermediate Completed 03/09/2014 Inject/Drain Joint/Bursa Small Completed 02/12/2013 Inject/Drain Joint/Bursa Intermediate Completed 06/18/2011 Inject/Drain Joint/Bursa Intermediate Completed 01/19/2010 23570 Rad Exam; Knee Comp Completed 08/23/2009 11474 Rad Shoulder Comp, Min. 2 Views Completed 08/23/2009 Inject/Drain Joint/Bursa Major Completed 08/23/2009 Inject/Drain Joint/Bursa Intermediate Completed Encounters Type Date Location Provider CPT E/M Dx Office Visit 10/01/2017 8:45a [facility] [place] [address] M25.851 C.M.A. Office Visit 09/17/2017 8:30a [facility] [place] [address] M25.851 C.M.A. M25.551 Office Visit 04/09/2017 11:00a [facility] [place] 39848 M19.011 C.M.ALinda Hanley MD Office Visit 09/30/2016 2:26p [facility] Tyree Murray, [address]75 R05 Assoc, Hospitalists Robin R00.0 R94.31 I10 Office Visit 09/29/2016 2:25p [facility] [place], [address] R05 Hospitalcaren Kelly R00.0 R94.31 I10 Office Visit 02/17/2016 11:00a [facility] Kaila Rios, 54449 G43.719 Robin M54.2 Office Visit 09/05/2015 11:30a [facility] Kaila Rios M.D. 89138 G43.719 [facility] Office Visit 03/02/2015 10:30a [facility] Kaila Rios M.D. 84550 346.71 [facility] 723.1 Office Visit 10/06/2014 10:00a [facility] Kaila Rios M.D. 43838 346.71 [facility] Office Visit 08/09/2014 2:30p [facility] Kaila Rios M.D. 67502 346.71 [facility] 723.1 Office Visit 05/03/2014 1:00p [facility] Kaila Rios M.D. 41771 346.71 Services Of [facility] 723.1 729.1 Office Visit 03/09/2014 10:00a [facility] Marc Tinoco 16539 718.91 Of Mayela Sheppard R.P.ALinda-C 726.10 840.4 715.91 Office Visit 01/25/2014 11:00a [facility] Kaila Rios M.D. 71078 346.71 [facility] Office Visit 12/07/2013 1:30p [facility] Kaila Rios M.D. 95703 346.91 Services Of [facility] Office Visit 09/09/2013 8:30a [facility] Kaila Rios M.D. 02417 346.71 [facility] 723.1 Office Visit 07/29/2013 9:00a [facility] Kaila Rios M.D. 62459 346.71 [facility] 723.1 Office Visit 02/12/2013 1:00p [facility] Toney Edmonds M.D. 54666 716.91 Of C.M.A. Office Visit 07/30/2011 8:00a [facility] Marc Tinoco 21497 716.91 Of Ivet CunninghamPLindaALinda-C Office Visit 06/18/2011 2:30p [facility] Toney Edmonds M.D. 89226 715.91 Of C.M.A. Office Visit 01/19/2010 10:30a [place] [address] 844.9 Of Mayela 836.0 Office Visit 08/23/2009 3:00p [facility] [address] 716.91 C.M.A. 726.10 Plan of Care Future Appointment(s):04/09/2018 11:15 am - Kaila Rios M.D. at [facility]01/08/2018 11:30 am - Kaila Rios M.D. at [facility]10/18/2017 - Rosalia Amaral, MDM25.851 Other specified joint disorders, right hipNew Therapy:Physical TherapyFollow up:Follow up: as needed
--- OUTSIDE RECORDS SUMMARY | 2017-11-06 13:14 | XMS REPORT ---
:1965 External Reference #:[id number] Author Organization [employer] Address [address] [address] Phone [phone] Care Team Providers Name Role Phone Reji Horta MD Primary Care Physician Unavailable Payers Type Date Identification Numbers Payment Provider Subscriber Commercial Policy Number: [id number] [facility] Bertha Bowden Group Number: [id number] [id number] PayID: [id number] [place] [address] Problems Date Description Provider Status Onset: 10/06/2014 [...] 07/20 Administered Injection Palmira Onabotulinumtoxin /2014 Gnmartita, BARKEEPER A, 1 Unit Injection 04/18 Administered Injection Palmira Onabotulinumtoxin /2014 Kylee BARKEEPER A, 1 Unit Injection 01/12 Administered Injection Palmira Onabotulinumtoxin /2014 Kylee BARKEEPER A, 1 Unit Injection 10/06 Administered Injection [...] concentration), >=300 (Toxic concentration) Test Performed by: [place] [id number] Family And Marriage Counsellor: Leonardo Patel III, M.D. Procedures Date CPT Code Description Status 10/04/2017 74424 Chemodenervation Of Muscles Innervated By Facial Completed Nerves, Bilat 06/19/2017 05696 Chemodenervation Of Muscles Innervated By Facial Completed Nerves, Bilat 04/09/2017 42078 Inject/Drain Joint/Bursa Intermediate Completed 03/15/2017 68684 Chemodenervation Of Muscles Innervated By Facial Completed Nerves, Bilat 11/28/2016 23722 Chemodenervation Of Muscles Innervated By Facial Completed Nerves, Bilat 09/30/2016 86073 ECHO Transthorasic Realtime 2D W Doppler & Color Completed Flow [facility] 05/18/2016 57358 Chemodenervation Of Muscles Innervated By Facial Completed Nerves, Bilat 02/17/2016 62187 Chemodenervation Of Muscles Innervated By Facial Completed Nerves, Bilat 11/02/2015 63245 Chemodenervation Of Muscles Innervated By Facial Completed Nerves, Bilat 07/20/2015 75095 Chemodenervation Of Muscles Innervated By Facial Completed Nerves, Bilat 04/18/2015 07361 Chemodenervation Of Muscles Innervated By Facial Completed Nerves, Bilat 01/12/2015 26376 Chemodenervation Of Muscles Innervated By Facial Completed Nerves, Bilat 10/06/2014 13447 Chemodenervation Of Neck Muscles Excluding Larynx, Completed Unilateral 06/28/2014 99648 Chemodenervation Of Muscles Innervated By Facial Completed Nerves, Bilat 03/09/2014 44371 Rad Shoulder Comp, Min. 2 Views Completed 03/09/2014 Inject/Drain Joint/Bursa Major Completed 03/09/2014 Inject/Drain Joint/Bursa Intermediate Completed 03/09/2014 Inject/Drain Joint/Bursa Small Completed 02/12/2013 Inject/Drain Joint/Bursa Intermediate Completed 06/18/2011 Inject/Drain Joint/Bursa Intermediate Completed 01/19/2010 89371 Rad Exam; Knee Comp Completed 08/23/2009 88722 Rad Shoulder Comp, Min. 2 Views Completed 08/23/2009 Inject/Drain Joint/Bursa Major Completed 08/23/2009 Inject/Drain Joint/Bursa Intermediate Completed Encounters Type Date Location Provider CPT E/M Dx Office Visit 10/01/2017 8:45a [facility] [place] [address] M25.851 C.M.A. Office Visit 09/17/2017 8:30a [facility] [place] [address] M25.851 C.M.A. M25.551 Office Visit 04/09/2017 11:00a [facility] 17008 M19.011 C.M.ALinda Hanley MD Office Visit 09/30/2016 2:26p [facility] Tyree Murray, [address] R05 Assoc, Hospitalists Robin R00.0 R94.31 I10 Office Visit 09/29/2016 2:25p [facility] [place], [address] R05 Hospitalcaren Kelly R00.0 R94.31 I10 Office Visit 02/17/2016 11:00a [facility] Kaila Rios, 59044 G43.719 Robin M54.2 Office Visit 09/05/2015 11:30a [facility] Kaila Rios M.D. 08385 G43.719 Services Of Yardage [employer] Operator Office Visit 03/02/2015 10:30a [facility] Kaila Rios M.D. 44947 346.71 Services Of [employer] Control Operator 723.1 Office Visit 10/06/2014 10:00a [facility] Kaila Rios M.D. 94789 346.71 Services Of [employer] Control Operator Office Visit 08/09/2014 2:30p [facility] Kaila Rios M.D. 81564 346.71 Services Of [employer] Control Operator 723.1 Office Visit 05/03/2014 1:00p [facility] Kaila Rios M.D. 65315 346.71 Services Of [facility] [address] 723.1 729.1 Office Visit 03/09/2014 10:00a [facility] Marc Tinoco [address]23[address] 718.91 Of Mayela Sheppard R.P.ALinda-C 726.10 840.4 715.91 Office Visit 01/25/2014 11:00a [facility] Kaila Rios M.D. 32656 346.71 Services Of [employer] Operator Office Visit 12/07/2013 1:30p [facility] Kaila Rios M.D. 74608 346.91 Services Of [facility] [address] Office Visit 09/09/2013 8:30a [facility] Kaila Rios M.D. 62270 346.71 Services Of [employer] Operator 723.1 Office Visit 07/29/2013 9:00a [facility] Kaila Rios M.D. 93407 346.71 Services Of [employer] Operator 723.1 Office Visit 02/12/2013 1:00p [facility] Toney Edmonds M.D. 26503 716.91 Of C.M.A. Office Visit 07/30/2011 8:00a [facility] Marc Tinoco 20850 716.91 Of Ivet CunninghamPLindaALinda-C Office Visit 06/18/2011 2:30p [facility] Toney Edmonds M.D. 02661 715.91 Of C.M.A. Office Visit 01/19/2010 10:30a [place] [address] 844.9 Of Mayela 836.0 Office Visit 08/23/2009 3:00p [facility] [address] 716.91 C.M.A. 726.10 Plan of Care Future Appointment(s):04/09/2018 11:15 am - Kalia Rios M.D. at [facility]01/08/2018 11:30 am - Kaila Rios M.D. at [facility]
[2017-11-06] MEDS ORDERED: NS 0.9% 1000 ML* 1,000 ML IV ONE (14:03)
--- NOTE | 2017-11-06 14:31 | RAD ---
HISTORY: Palpitation COMPARISONS: September 29, 2016 VIEWS: 4: Frontal dual-energy and lateral views of the chest. FINDINGS: CARDIOMEDIASTINAL SILHOUETTE: The cardiomediastinal silhouette is normal. JERAMY: The jeramy are normal. PLEURA: The costophrenic angles are sharp. No pleural abnormalities are noted. LUNG PARENCHYMA: The lungs are clear. ABDOMEN: The upper abdomen is clear. There is no subphrenic gas. BONES AND SOFT TISSUES: No bone or soft tissue abnormalities are noted. OTHER: None. IMPRESSION: NO ACTIVE CARDIOPULMONARY DISEASE.
[2017-11-06 14:41] LABS: ABS Basophils 0.1 10^3/ul (0-0.2); ABS Eosinophils 0.1 10^3/ul (0-0.6); ABS Neutrophils 10.4 10^3/ul (1.5-7.7); ABS Nucleated RBC 0 10^3/ul; Eosinophil % 0.8 % (0-6); Hematocrit 39 % (35-47); Hemoglobin 13.4 g/dl (12.0-16.0); Lymphocyte % 14.9 % (25-47); Mean Corpuscular HGB Conc 34 g/dl (31-36); Mean Corpuscular Hemoglobin 30 pg (27-31); Mean Corpuscular Volume 87 fL (80-97); Mean Platelet Volume 7 um3 (7.4-10.4); Nucleated Red Blood Cells % 0; Platelet Count 335 10^3/ul (150-450); Red Blood Count 4.51 10^6/ul (4.0-5.4); Red Cell Distribution Width 14 % (10.5-15); White Blood Count 13.6 10^3/ul (3.5-10.8)
[2017-11-06 14:53] LABS: EGFR Non-African American 76.4 (>60)
[2017-11-06] MEDS ORDERED: Potassium Chlor TAB* 20 MEQ TAB.ER PO ONE (15:04)
[2017-11-06] MEDS ORDERED: Magnesium Oxide TAB* 400 MG PO ONE (15:04)
[2017-11-06] MEDS ORDERED: Metoprolol Tartrate TAB* 25 MG PO ONE (15:31)
[2017-11-06 15:32] LABS: Urine Appearance Cloudy; Urine Blood 1+ (Negative); Urine Color Yellow; Urine Ketones Negative (Negative); Urine Protein Negative (Negative); Urine Specific Gravity 1.023 (1.010-1.030); Urine Urobilinogen Negative (Negative)
[2017-11-06] MEDS ORDERED: Sulfamethox/Trimethoprim DS 800/160* TAB PO ONE (16:09)
[2017-11-06 16:42] VITALS: BP 136/79
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
== END 2017-11-06 16:41 | disposition home or self-care (01) ==
LOC: ED 12:36
DX: N39.0 Urinary tract infection, site not specified (principal); R42 Dizziness and giddiness; R00.2 Palpitations; Z87.891 Personal history of nicotine dependence; Z86.79 Personal history of other diseases of the circulatory system
CPT/HCPCS: 36415; 71046; 80053; 81003; 81015; 82550; 82553; 83735; 83880; 84443; 84484; 85025; 85379; 93005; 99283; A9270-GY

== ENCOUNTER 2018-03-12 06:35 | Day surgery (SDC) | payer OTHER ==
--- NOTE | 2018-03-06 23:57 | HP ---
PREOPERATIVE HISTORY AND PHYSICAL: DATE OF ADMISSION/SURGERY: 03/12/18 DATE OF OFFICE VISIT: 03/04/18 ATTENDING SURGEON: Dr. Rosalia Amaral.* (DICTATED BY QUYNH HUTCHISON) PROCEDURE: Right hip arthroscopic labral repair and osteoplasty. CHIEF COMPLAINT: Right hip. HISTORY OF PRESENT ILLNESS: Bertha is a 53-year-old female who presents to clinic for a right hip pain due to femoral acetabular impingement and a labral tear. She has failed conservative measures and is therefore agreed to undergo a right hip arthroscopic labral repair and osteoplasty with Dr. Amaral on . PAST MEDICAL HISTORY: Hypertension, arthritis, chronic back pain, depression and anxiety. PAST SURGICAL HISTORY: L4-L5 diskectomy, , wisdom teeth surgery. The patient denies prior complications with anesthesia. MEDICATIONS: 1. Botox every 3 months as needed for migraines. 2. Sumatriptan 100 mg 1 by mouth as needed for migraine, may repeat after 2 hours, maximum 2 days a week, maximum 3 tabs in 24 hours. 3. Nortriptyline 10 mg, take 3 at bedtime. 4. Soma 350 mg 3 times a day. 5. [place] 5/325 one to two every 4 hours as needed for pain. 6. Advil 200 mg 4 twice a day as needed. 7. Prozac 20 mg 1-1/2 caps daily. 8. QNASL 80 mcg per ACT once daily. 9. Hydrochlorothiazide 50 mg once daily. 10. Whole food supplement as directed. ALLERGIES: ADHESIVE, TOPIRAMATE. FAMILY HISTORY: Positive for stroke in her grandmother. Denies family history of DVT or PE. SOCIAL HISTORY: She lives with her daughter and mother. She is an associate product manger. She quit smoking in 2000. She reports occasional alcohol consumption. She is right hand dominant. REVIEW OF SYSTEMS: A 14-point review of systems was reviewed with the patient. Positive for the current complaint, otherwise negative. Denies fever, chills, chest pain, shortness of breath, history of bleeding disorder, history of DVT or PE, history of MRSA. PHYSICAL EXAMINATION GENERAL: A 53-year-old well-developed, well-nourished female in no acute distress. Alert and oriented x3. Appropriate mood and affect. Appropriate balance and coordination of the upper extremities. VITAL SIGNS: Height 6 feet 2 inches, weight 190, blood pressure 140/88, respiratory rate 16, temperature 98, BMI 34.7. HEENT: Normocephalic, atraumatic. PERRLA. Throat: Clear. NECK: Supple. PULMONARY: Lungs are clear to auscultation bilaterally. No wheezing, rhonchi, or rales. CARDIO: Regular rate and rhythm. S1 and S2. No murmurs, gallops, or rubs. No edema. ABDOMEN: Positive bowel sounds, soft, nontender. NEUROLOGIC: Alert and oriented x3. Cranial nerves grossly intact. Right hip skin is intact. No warmth or erythema. Nontender to palpation. Deep flex into 120 with pain. Positive FADIR, no pain with YEIMY. No pain on logroll. Mild pain with passive abduction. +5/5 strength to dorsiflex, plantarflexion. +2 PT pulse. Sensation is intact to light touch distally. DIAGNOSTIC STUDIES/LAB DATA: MRI revealed cam and pincer morphology with evidence of a labral tear. IMPRESSION: Right hip labral tear. PLAN: The patient is scheduled to undergo a right hip arthroscopic labral repair and osteoplasty with Dr. Amaral on 03/12/18. She will follow up in 10 to 14 days postop for followup and suture removal. She will be 50% weightbearing with crutches for the first 2 weeks. She will start physical therapy the day after surgery. She was given a script and protocol today in clinic. She was given out of work note to start the day of surgery until further notice as well as the handicap parking pass. Percocet will be used for postop pain management and naproxen for prevention of heterotopic ossification. QUYNH HUTCHISON [id number]/[facility] #: [id number] DAVID
[~2018-03-12 06:35] MED LIST: Buffered Lidocaine 0.9% SYRIN* 5 ML/SYR SYRINGE INTRADERM ONE; Famotidine IV* 10 MG/ML 2 ML (20 mg) IV ONE; Famotidine IV* 10 MG/ML 2 ML (20 mg) ONE; ceFAZolin 2 GM PREMIX (*) 2 GM/50 ML BAG IVPB ONE
[2018-03-12] MEDS ORDERED: Ketorolac INJ* 30 MG/ML 1 ML VIAL ONE ×2 (07:16→08:15)
[2018-03-12] MEDS ORDERED: Bupivacaine 0.25% SDV* 30 ML ONE (07:16)
[2018-03-12] MEDS ORDERED: fentaNYL* 50 MCG/ML 2 ML VIAL (100 MCG VIAL) ONE ×3 (07:31→10:32)
[2018-03-12] MEDS ORDERED: Midazolam* 1 MG/ML 5 ML VIAL (5 MG) ONE (07:31)
[2018-03-12] MEDS ORDERED: Succinylcholine* 20 MG/ML 10 ML VIAL ONE (08:15)
[2018-03-12] MEDS ORDERED: Propofol* 10 MG/ML 20 ML BTL IV PUSH ONE ×2 (08:15→10:33)
[2018-03-12] MEDS ORDERED: DiMENhydriNATE IV* 50 MG/ML VIAL ONE (08:15)
[2018-03-12] MEDS ORDERED: Dexamethasone IV* 4 MG/ML 1 ML (4 MG) ONE (08:15)
[2018-03-12] MEDS ORDERED: Lidocaine 2% PF * 5 ML VIAL ONE (08:16)
[2018-03-12] MEDS ORDERED: Naloxone* 0.4 MG/ML 1 ML VIAL IV PRN (09:01)
[2018-03-12] MEDS ORDERED: Ondansetron INJ* 2 MG/ML VIAL IV PRN (09:01)
[2018-03-12] MEDS ORDERED: HYDROmorphone INJ* 1 MG/ML CARPUJECT SYRINGE IV PRN (09:01)
[2018-03-12] MEDS ORDERED: oxyCODONE/Acetamin 5/325 MG* TAB ONE (11:17)
[2018-03-12] MEDS ORDERED: HYDROmorphone INJ* 2 MG/ML CARPUJECT SYRINGE ONE (11:18)
[2018-03-12] MEDS: oxyCODONE/Acetamin 5/325 MG* TAB PO PRN ×2 (11:18→11:19)
[2018-03-12 11:35] VITALS: BP 128/93
--- NOTE | 2018-03-12 14:48 | OP ---
DATE OF OPERATION: 03/12/18 - [facility] DATE OF : 65 SURGEON: Rosalia Amaral MD BUSINESS SERVICES REPRESENTATIVE: QYUNH De León. An primary teaching assistant was needed for the entirety of the case to help with positioning, retraction and was utilized throughout all portions of the case. ANESTHESIOLOGIST: Dr. Mercer. ANESTHESIA: General. 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 OPERATIVE PROCEDURE: 1. Right hip arthroscopy with synovectomy. 2. Labral debridement. 3. Pincer osteoplasty. 4. Cam osteoplasty. 5. A 22 modifier due to the complexity of the case, difficulty mobilizing this case, the size of the patient making surgery technically challenging. COMPLICATIONS: None. TRACTION TIME: 1 hour 27 minutes. IMPLANTS USED: None. INDICATIONS: Bertha Bowden is a 53-year-old female who presents with hip pain. She has some mild osteoarthritic changes. She has failed conservative treatment and has not responded to an intraarticular injection and elected to proceed with surgical treatment. Risks and benefits of surgery were discussed at length and included, but not limited to bleeding, infection, damage to nerves , vessels, surrounding structures, wound nonhealing, persistent pain, need for further surgery, scarring, stiffness, incomplete relief of symptoms, risks of anesthesia. DESCRIPTION OF PROCEDURE: The patient was greeted in the preoperative area by the attending surgeon. The patient was brought back to the operating suite. She was placed in supine position on operating table. She then under-went general anesthesia and endotracheal intubation after which she was appropriately positioned in the bed. The patient was placed in well-padded boots. Her legs were then placed in [employer] hip distraction system with well-padded perineal post. Gross traction was then applied to balance pelvis in the nonoperative leg. The operative extremity was then placed in a dynamic leg negron with neutral adduction, slight flexion, gentle internal rotation and debridement of femoral neck parallel to the floor to help facilitate atraumatic access. After the arm was secured over the patient, the right hip was then prepped and draped in the usual sterile fashion beginning with chlorhexidine soap, scrub, and alcohol wipe. After a miniature surgical pause, gross traction was applied to the operative extremity and under sterile condition, an 18-gauge spinal needle was then introduced to the joint to break the acetabular seal. This was very difficult and unable to be broken. The air arthrogram was not identified. Access to the joint was tried multiple times and eventually fluid was passed in and the joint was distracted to about 1.5 cm, but this was not in the routine fashion. After this was confirmed by C-arm, the traction was released and the needle was removed. The right hip was then prepped with final prep with ChloraPrep. After appropriate surgical pause indicating side, site and procedure, administration of antibiotics, the traction was brought back up to allow for about 1.5 cm of distraction. The anterior peritrochanteric portal was then accessed using this long spinal needle. This actually was quite difficult to do and due to the same reason determined to be a displaced labral tear into the joint. A second distal anterior portal was made to access the joint. This helped to facilitate access. The scope was positioned into the joint and the labrum was found to be torn and displaced into the joint itself. After that was addressed, the standard anterior peritrochanteric portal was then made and attention was made to make sure that it was not piercing the labrum. Labrum was completely detached and in macerated and shredded condition and was displaced into the joint. After these 2 portals were established, a second anterolateral portal was made in the usual fashion using the spinal needle. The trocar was then advanced. The shaver was used to remove the abundant synovitic and displaced labrum. Care was taken to make sure that the labrum was not pierced by any of the portals. Capsulotomy was then attempted. The tissue was very thick and scarred and difficult to use with the united keetoowah blade. Once the capsulotomy was done, the shaver was used to debride back the labrum. The labrum was completely detached from the acetabulum. There were grade 1 and 2 changes of the acetabulum in the mid substance but on the periphery of the edges where the labrum was torn, there was an area of grade 3 change and a chondral flap. The shaver was used to debride back the unstable flaps of the labrum as well as the chondral flap. Care was taken to try to remove any kind of tissue impinging. The capsule was very synovitic and inflamed and the electrocautery device was used throughout the case because every time the tissue was accessed, it was very friable tissue that would bleed a lot. There was a small pincer deformity that was identified and this was then exposed and rim trimming was done with a 5.5 mm round donna where there was a small area of focal retroversion. The labrum again was debrided back. There was no labrum to be fixed back. The synovitis was removed carefully with the shaver and electrocautery device. Once the rim trimming was complete as confirmed from the C-arm, all excess debris was removed. Images were obtained. The femoral head had grade 2 changes. This actually took about 1 hour and 27 minutes which is longer than the typical traction time. The traction was then released and confirmed under direct as well as fluoroscopic visualization. Attention was directed to the cam osteoplasty. There was a moderate sized cam lesion with evidence of irritation along femoral neck. The preoperative templating was used to guide for the femoral neck osteoplasty, and osteoplasty was done using a 5.5 round donna. The resection was carried out from superior to inferior and lateral to medial. This was monitored and confirmed using the C -arm to remove femoral-sided impingement. She did have an inferior spur which was left alone. The femoral head and neck angle were normalized as much as possible. There was abundant synovitis throughout this portion of the case and all the tissue again was friable. Electrocautery was used to try to maintain hemostasis. The hip was taken through range of motion, resection was done in extension, flexion, internal and external rotation as well as neutral rotation. Dynamic testing was done under direct visualization and C-arm to ensure that bony impingement was removed. At this point, meticulous hemostasis was obtained. A spinal needle was then inserted into the joint under arthroscopic visualization and 30 mg of Toradol as well as 3 cc of injectable saline were injected into the hip joint. The incisions were copiously irrigated and closed in layered fashion with 2-0 Vicryl, 3-0 nylon. The portals were injected with 0.25% Marcaine plain for postoperative pain control. Sterile dressings were applied as well as a Cryo/Cuff, thigh high ANNE MARIE stockings and she was awoken from anesthesia and transferred to PACU in stable condition. POSTOPERATIVE PLAN: She will be discharged the same day. Given her prescription for Percocet, Naprosyn. She will begin gentle range of motion with therapy on postop day 1, 50% partial weightbearing with crutches for the first 2 weeks and no hip flexion past 90 degrees for the first 2 weeks. I will see her back in 2 weeks with x-rays of the hip including a Cabral lateral. [id number]/[facility] #: [id number] [facility]
--- NOTE | 2018-03-13 09:33 | RAD ---
INDICATION: RIGHT hip arthroscopic labral repair. Osteoplasty Technique: 187.2 seconds of?fluoroscopy?was provided?for the physician proceduralist. REPORT: Spot image documents and instrument at the level of the RIGHT hip superior joint space. IMPRESSION: Procedural control films. CPT II Codes: G9500
== END 2018-03-12 12:59 | disposition home or self-care (01) ==
LOC: OR 06:35
PROVIDERS: ATTEND Orthopaedic Surgery
DX: M25.851 Other specified joint disorders, right hip (principal); M24.851 Other specific joint derangements of right hip, not elsewhere classified; M16.11 Unilateral primary osteoarthritis, right hip; I10 Essential (primary) hypertension; M19.90 Unspecified osteoarthritis, unspecified site; F41.8 Other specified anxiety disorders; Z87.891 Personal history of nicotine dependence; Z79.899 Other long term (current) drug therapy; G43.909 Migraine, unspecified, not intractable, without status migrainosus; M54.9 Dorsalgia, unspecified; K21.9 Gastro-esophageal reflux disease without esophagitis
CPT/HCPCS: 81025; A9270-GY; J0330; J0690; J1100; J1170; J1240; J1885; J2250; J2704; J3010